=== PATIENT | female | born 1940 | race Caucasian/White ===

== ENCOUNTER 2018-05-24 23:25 | Emergency (ER) | payer MEDICARE, BC ==
[2018-05-25] MEDS ORDERED: LORazepam 0.5 MG Tab PO ONE (00:04)
--- NOTE | 2018-05-25 00:12 | EDM.PDOC ---
ED HPI GENERAL MEDICAL PROBLEM - General Chief Complaint: General Stated Complaint: Hypertension, dizzy, nauseous Time Seen by Provider: 05/24/18 23:50 Source of Information: Reports: Patient, Family (dtr) History Limitations: Reports: No Limitations - History of Present Illness INITIAL COMMENTS - FREE TEXT/NARRATIVE: Patient presents with concern of high blood pressure. She missed a dose of her Losartan last night but today took her Losartan and her atenolol as directed. Her blood pressure was up to 170's/80's and she is concerned. She had a right [place] 5 weeks ago and has been recovering well from surgery. She has had a lot of family and home health around her helping with things. Over the past week she is on her own for most everything and sometimes struggles to do what she needs to do. This is causing some stress and worry. She takes Escitalopram for anxiety but nothing prn. - Related Data Allergies Allergy/AdvReac Type Severity Reaction Status Date / Time latex Allergy Rash Verified 05/25/18 00:09 Penicillins Allergy Rash Verified 05/25/18 00:09 Home Meds: Home Meds Atenolol 50 mg PO BEDTIME 05/24/18 [History] Losartan [Cozaar] 50 mg PO DAILY 05/24/18 [History] Escitalopram [Lexapro] 20 mg PO DAILY 05/25/18 [History] Rosuvastatin [Crestor] 5 mg PO DAILY 05/25/18 [History] ED ROS GENERAL - Review of Systems Review Of Systems: See Below Constitutional: Denies: Fever, Chills, Malaise, Weakness HEENT: Reports: No Symptoms Respiratory: Denies: Shortness of Breath, Cough Cardiovascular: Denies: Chest Pain, Lightheadedness, Syncope Endocrine: Reports: No Symptoms GI/Abdominal: Denies: Abdominal Pain, Constipation, Diarrhea, Vomiting : Denies: Dysuria, Flank Pain Musculoskeletal: Denies: Neck Pain, Shoulder Pain, Arm Pain, Back Pain, Hand Pain Skin: Denies: Cyanosis, Jaundice, Mottled, Pallor, Diaphoresis Neurological: Denies: Confusion, Dizziness, Seizure, Syncope, Weakness, Change in Speech Psychiatric: Reports: Anxiety. Denies: Agitation, Confusion ED EXAM, GENERAL - Physical Exam Exam: See Below Exam Limited By: No Limitations General Appearance: Alert, WD/WN, No Apparent Distress Eye Exam: Bilateral Eye: EOMI, Normal Inspection, PERRL Ears: Normal External Exam, Hearing Grossly Normal Nose: Normal Inspection, No Blood Throat/Mouth: Normal Inspection, Normal Lips, Normal Voice, No Airway Compromise Head: Atraumatic, Normocephalic Neck: Normal Inspection, Full Range of Motion Respiratory/Chest: No Respiratory Distress, Lungs Clear, Normal Breath Sounds, No Accessory Muscle Use Cardiovascular: Regular Rate, Rhythm, No Murmur GI/Abdominal: Normal Bowel Sounds, Soft, Non-Tender, No Organomegaly, No Distention, No Abnormal Bruit, No Mass Back Exam: Normal Inspection, Full Range of Motion. No: CVA Tenderness (L), CVA Tenderness (R) Extremities: Normal Inspection, Non-Tender, No Pedal Edema Neurological: Alert, Oriented, Normal Cognition, No Motor/Sensory Deficits Psychiatric: Normal Affect, Anxious Skin Exam: Warm, Dry, Intact, Normal Color, No Rash Course - Vital Signs Last Recorded V/S: Last Vital Signs Temp 97.8 F 05/24/18 23:41 Pulse 70 05/24/18 23:41 Resp 23 H 05/24/18 23:41 BP 178/91 H 05/24/18 23:41 Pulse Ox 99 05/24/18 23:41 - Orders/Labs/Meds Orders: Active Orders 24 hr Category Date Time Status LORazepam [Ativan] Med 05/25/18 00:04 Once 0.5 mg PO ONETIME ONE - Re-Assessments/Exams Free Text/Narrative Re-Assessment/Exam: 05/25/18 00:58 Pressures initially 160s-170s/80's. After discussion of blood pressure numbers that are concerning long-term versus concerning in the short-term and giving patient Lorazepam 0.5 mg, blood pressure came down to 136/68. We discussed the variety of things that can cause elevated blood pressure and that likely her increased worry and anxiety about being on her own now to care for herself and recover from surgery is contributing to it now. Patient appreciated time and detailed explanation and appears less anxious. She takes Escitalopram daily for anxiety and I advised her to discuss possibly adding something like Lorazepam as an option for use when needed. Discharged home in stable condition. Departure - Departure Time of Disposition: 00:55 Disposition: Home, Self-Care 01 Condition: Good Clinical Impression: Anxiety Hypertension Qualifiers: Hypertension type: unspecified Qualified Code(s): I10 - Essential (primary) hypertension - Discharge Information Instructions: Hypertension, [id number] Additional Instructions: 1. Drink 8 cups of water daily. 2. Continue your medications as directed. 3. Follow up with Dr. Bennett to discuss your blood pressure management and to discuss possibly having something to use as needed for anxiety. 4. Return to ER as needed. - My Orders Last 24 Hours: My Active Orders 05/25/18 00:04 LORazepam [Ativan] 0.5 mg PO ONETIME ONE - Assessment/Plan Last 24 Hours: My Active Orders 05/25/18 00:04 LORazepam [Ativan] 0.5 mg PO ONETIME ONE
== END 2018-05-25 01:10 | disposition home or self-care (01) ==
LOC: KA.ED 23:25
DX: I10 Essential (primary) hypertension (principal); F41.9 Anxiety disorder, unspecified; Z79.899 Other long term (current) drug therapy; Z91.040 Latex allergy status; Z88.0 Allergy status to penicillin
CPT/HCPCS: 99283; A9270-GY

== ENCOUNTER 2019-06-24 19:49 | Emergency (ER) | payer MEDICARE, BC ==
--- NOTE | 2019-06-24 20:10 | EDM.PDOC ---
ED HPI GENERAL MEDICAL PROBLEM - General Chief Complaint: General Stated Complaint: BLOOD IN STOOL Time Seen by Provider: 06/24/19 19:50 Source of Information: Reports: Patient History Limitations: Reports: No Limitations - History of Present Illness INITIAL COMMENTS - FREE TEXT/NARRATIVE: 78 YO WF presents to ER complaining of bloody stool x 2 days. Pt reports she was recently on a zpak for bronchitis. Pt denies fever/chills, no abdominal pain. Pt with history of hemorrhoids but denies any rectal pain at this time. Pt reports she has had 4 loose stools since yesterday and that 2 of those stools were mixed with blood. Pt reports she hasn't had an appetite due to not being able totaste her food due to recent URI/sinus/bronchitis. Pt reports stool is loose with mixed bright red blood. Onset Date: 06/23/19 Duration: Day(s): (2) Location: Reports: Generalized Severity: Mild Improves with: Reports: None Worsens with: Reports: None Associated Symptoms: Reports: No Other Symptoms. 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 Denies: Abdominal Pain, Anorexia, Black Stool, Constipation , Difficulty Swallowing, Distension, Flatus, Hematemesis, Melena, Nausea, Stool Incontinence, Vomiting : Reports: No Symptoms Musculoskeletal: Reports: No Symptoms Skin: Reports: No Symptoms Neurological: Reports: No Symptoms Psychiatric: Reports: No Symptoms Hematologic/Lymphatic: Reports: No Symptoms Immunologic: Reports: No Symptoms ED EXAM, GENERAL - Physical Exam Exam: See Below Exam Limited By: No Limitations General Appearance: Alert, WD/WN, No Apparent Distress Head: Atraumatic, Normocephalic Neck: Normal Inspection, Supple, Non-Tender, Full Range of Motion Respiratory/Chest: No Respiratory Distress, Lungs Clear, Normal Breath Sounds, No Accessory Muscle Use, Chest Non-Tender Cardiovascular: Normal Peripheral Pulses, Regular Rate, Rhythm, No Edema, No Gallop, No JVD, No Murmur, No Rub GI/Abdominal: Normal Bowel Sounds, Soft, Non-Tender, No Organomegaly, No Distention, No Abnormal Bruit, No Mass Rectal (Female) Exam: Deferred (per patient request) Back Exam: Normal Inspection, Full Range of Motion, NT Extremities: Normal Inspection, Normal Range of Motion, Non-Tender, Normal Capillary Refill, No Pedal Edema Neurological: Alert, Oriented, CN II-XII Intact, Normal Cognition, Normal Gait, Normal Reflexes, No Motor/Sensory Deficits Psychiatric: Normal Affect, Normal Mood Skin Exam: Warm, Dry, Intact, Normal Color, No Rash Lymphatic: No Adenopathy Course - Vital Signs Last Recorded V/S: Last Vital Signs Temp 36.3 C 06/24/19 20:28 Pulse 88 06/24/19 20:28 Resp 20 06/24/19 20:28 BP 171/88 H 06/24/19 20:28 Pulse Ox 96 06/24/19 20:28 - Orders/Labs/Meds Orders: Active Orders 24 hr Category Date Time Status OCCULT BLOOD DIAGNOSTIC [OP] Stat Lab 06/24/19 19:15 Results OVA & PARASITES BY IMMUNOASSAY [MREF] Stat Lab 06/24/19 20:17 Ordered STOOL CULTURE/SHIGA TOXIN [MREF] Stat Lab 06/24/19 20:17 Ordered WBC, STOOL [OP] Stat Lab 06/24/19 19:15 Results Labs: Laboratory Tests 06/24/19 06/24/19 Range/Units 20:25 20:25 WBC 18.08 H D (5.00-10.00) 10^3/uL RBC 4.26 (3.80-5.50) 10^6/uL Hgb 12.9 (12.0-16.0) g/dL Hct 37.8 (37.0-47.0) % MCV 88.7 (82.0-92.0) fL MCH 30.3 (27.0-31.0) pg MCHC 34.1 (32.0-36.0) g/dL RDW 12.4 (11.5-14.5) % Plt Count 288 (150-400) 10^3/uL MPV 8.4 (7.4-10.4) fL Immature Gran % (Auto) 0.2 (0.0-5.0) % Neut % (Auto) 81.0 H (50.0-70.0) % Lymph % (Auto) 8.9 L (20.0-40.0) % [place] % (Auto) 9.6 H (2.0-8.0) % Eos % (Auto) 0.2 L (1.0-3.0) % Baso % (Auto) 0.1 (0.0-1.0) % Immature Gran # (Auto) 0.03 (0.00-0.50) 10^3/uL Neut # (Auto) 14.67 H (2.50-7.00) 10^3/uL Lymph # (Auto) 1.61 (1.00-4.00) 10^3/uL [place] # (Auto) 1.73 H (0.10-0.80) 10^3/uL Eos # (Auto) 0.03 L (0.10-0.30) 10^3/uL Baso # (Auto) 0.01 (0.00-0.10) 10^3/uL Sodium 139 (136-145) mmol/L Potassium 3.4 (3.3-5.3) mmol/L Chloride 101 (98-115) mmol/L Carbon Dioxide 26.1 (21.0-32.0) mmol/L Anion Gap 15.3 H (5-15) mmol/L BUN 18 (6-25) mg/dL Creatinine 0.66 (0.51-1.17) mg/dL Est Cr Clr Drug Dosing 72.23 mL/min Estimated GFR (MDRD) > 60 mL/min Glucose 114 H (75 - 99) mg/dL Calcium 9.1 (8.7-10.3) mg/dL Total Bilirubin 0.3 (0.2-1.0) mg/dL AST 17 (15-37) U/L ALT 17 (12-78) U/L Alkaline Phosphatase 79 (46-116) IU/L Total Protein 7.4 (6.4-8.2) g/dL Albumin 3.42 (3.00-4.80) g/dL Departure - Departure Time of Disposition: 21:53 Disposition: Home, Self-Care 01 Condition: Good Clinical Impression: C. difficile diarrhea - Discharge Information Prescriptions: Vancomycin 125 mg PO QID #56 cap Instructions: Clostridium Difficile Infection Referrals: Macie Elmore MD [Primary Care Provider] - Forms: ED Department Discharge Additional Instructions: 1. discharge home 2. Vancomycin 125mg every 6 hours x 14 days 3. follow up with Dr Morales 06/28/2019 for repeat blood draw 4. good hand washing and avoid contact with shared food, very young, very old or anyone who's immunocompromised 5. return to ER for fever, severe abdominal pain or inability to tolerate fluids , or solids 6. bring stool specimen for ova/parasites and stool culture on your 06/28/2019 clinic visit. Sepsis Event Note - Focused Exam Vital Signs: Vital Signs Temp Pulse Resp BP Pulse Ox 06/24/19 20:28 36.3 C 88 20 171/88 H 96 Date Exam was Performed: 06/24/19 Time Exam was Performed: 21:42 - My Orders Last 24 Hours: My Active Orders 06/24/19 19:15 OCCULT BLOOD DIAGNOSTIC [OP] Stat WBC, STOOL [OP] Stat 06/24/19 20:17 OVA & PARASITES BY IMMUNOASSAY [MREF] Stat STOOL CULTURE/SHIGA TOXIN [MREF] Stat - Assessment/Plan Last 24 Hours: My Active Orders 06/24/19 19:15 OCCULT BLOOD DIAGNOSTIC [OP] Stat WBC, STOOL [OP] Stat 06/24/19 20:17 OVA & PARASITES BY IMMUNOASSAY [MREF] Stat STOOL CULTURE/SHIGA TOXIN [MREF] Stat Assessment:: 1. C Diff 2. Bloody diarrhea Plan: 1. discharge home 2. Vancomycin 125mg every 6 hours x 14 days 3. follow up with Dr Morales 06/28/2019 for repeat blood draw 4. good hand washing and avoid contact with shared food, very young, very old or anyone who's immunocompromised 5. return to ER for fever, severe abdominal pain or inability to tolerate fluids , or solids 6. bring stool specimen for ova/parasites and stool culture on your 06/28/2019 clinic visit.
[2019-06-24 21:05] LABS: ANION GAP 15.3 mmol/L (5-15); CHLORIDE,CL 101 mmol/L (98-115); SODIUM,NA 139 mmol/L (136-145)
[2019-06-24] MEDS ORDERED: Vancomycin 125 MG Cap PO ONE ×2 (21:55→22:00)
== END 2019-06-24 22:10 | disposition home or self-care (01) ==
LOC: KA.ED 19:49
DX: A04.72 Enterocolitis due to Clostridium difficile, not specified as recurrent (principal); I10 Essential (primary) hypertension; F32.9 Major depressive disorder, single episode, unspecified; Z79.899 Other long term (current) drug therapy; Z88.0 Allergy status to penicillin; Z91.040 Latex allergy status
CPT/HCPCS: 36415; 80053; 82272; 85025; 87324; 87449; 89055; 99283; 99284; A9270-GY

== ENCOUNTER 2022-12-16 16:50 | Emergency (ER) | payer MEDICARE, BC ==
[2022-12-16] MEDS ORDERED: Sodium Chloride 0.9% 1,000 ML IV ONE (17:24)
[2022-12-16 17:31] LABS: BASOPHILS ABSOLUTE AUTO 0.01 10^3/uL (0.00-0.10); BASOPHILS PERCENT AUTO 0.2 % (0.0-1.0); HEMATOCRIT 41.9 % (37.0-47.0); HEMOGLOBIN 13.8 g/dL (12.0-16.0); IMMATURE GRAN ABSOLUTE AUTO 0.01 10^3/uL (0.00-0.50); IMMATURE GRAN PERCENT AUTO 0.2 % (0.0-5.0); LYMPHOCYTES PERCENT AUTO 23.1 % (20.0-40.0); MEAN CORPUSCULAR HEMOGLOBIN 29.3 pg (27.0-31.0); MEAN CORPUSCULAR HGB CONC 32.9 g/dL (32.0-36.0); MONOCYTES ABSOLUTE AUTO 0.81 10^3/uL (0.10-0.80); MONOCYTES PERCENT AUTO 15.6 % (2.0-8.0); NEUTROPHILS ABSOLUTE AUTO 3.16 10^3/uL (2.50-7.00); NEUTROPHILS PERCENT AUTO 60.9 % (50.0-70.0); PLATELET COUNT,PLT 148 10^3/uL (150-400); RED BLOOD CELL COUNT 4.71 10^6/uL (3.80-5.50); RED CELL DISTRIBUTION WIDTH 13.4 % (11.5-14.5); WHITE BLOOD CELL COUNT,WBC 5.19 10^3/uL (5.00-10.00)
[2022-12-16 17:45] LABS: ALBUMIN 3.52 g/dL (3.40-5.00); ANION GAP 18.2 mmol/L (5-15); BILIRUBIN TOTAL 0.3 mg/dL (0.2-1.0); CALCIUM 8.4 mg/dL (8.7-10.3); CARBON DIOXIDE,CO2 25.6 mmol/L (21.0-32.0); CREATININE 0.69 mg/dL (0.51-1.17); EST CRCL DRUG DOSING (CG) 64.14 mL/min; POTASSIUM,K 3.8 mmol/L (3.5-5.1); PROTEIN TOTAL,TP 7.3 g/dL (6.4-8.2)
[2022-12-16 18:10] LABS: INFLUENZA A NAA NEGATIVE (NEGATIVE); INFLUENZA B NAA NEGATIVE (NEGATIVE)
[2022-12-16 18:13] LABS: CORONAVIRUS COVID-19 NAA POSITIVE (NEGATIVE)
== END 2022-12-16 19:20 | disposition home or self-care (01) ==
LOC: KA.ED 16:50
DX: U07.1 COVID-19 (principal); R53.1 Weakness; I10 Essential (primary) hypertension; Z20.822 Contact with and (suspected) exposure to COVID-19; Z88.0 Allergy status to penicillin; Z88.1 Allergy status to other antibiotic agents; Z91.040 Latex allergy status
CPT/HCPCS: 0240U; 80053; 85025; 96360; 99283; 99284; J7030